=== PATIENT | female | born 1950 | race American Indian/Alaskan Native ===

== ENCOUNTER 2016-06-29 07:53 | Outpatient (CLI) | payer MEDICARE ==
--- NOTE | 2016-06-29 09:08 | Mammography Report ---
BILATERAL MAMMOGRAM with CAD: HISTORY: Cancer screening. Comparison study is dated May 10, 2015. FINDINGS: The breast tissue is heterogeneously dense, which could obscure detection of small masses (approximately 50%-75% glandular). No mass, distortion, suspicious calcification, or skin change is seen. IMPRESSION: Negative mammogram. There is no mammographic evidence of malignancy. RECOMMENDATION: Follow-up per ACS guidelines. BI-RADS CATEGORY: 1 = Negative ACR BI-RADS MAMMOGRAPHIC CODES: 0 = Needs additional imaging evaluation; 1 = Negative; 2 = Benign; 3 = Probably benign; 4 = Suspicious; 5 = Malignant; 6 = Known biopsy-proven malignancy COMMENT: 1. Dense breast tissue, i.e., adenosis, fibrocystic changes, etc., may obscure an underlying neoplasm. 2. Approximately 10% of cancers are not detected with mammography. 3. A negative mammography report should not delay biopsy if a clinically suspicious mass is present. COMMENT: Patient follow-up letters are generated in [employer].
== END 2016-06-29 07:54 | disposition home or self-care (01) ==
LOC: MAMMO 07:53
PROVIDERS: ATTEND Physician Assistant Medical
DX: Z12.31 Encounter for screening mammogram for malignant neoplasm of breast (principal)
CPT/HCPCS: 77067; G0202

== ENCOUNTER 2016-07-12 05:51 | Day surgery (SDC) | payer MEDICARE ==
--- NOTE | 2016-07-11 17:20 | History and Physical Report ---
History of Present Illness Date of examination: 07/11/16 Chief complaint: Vulvar lesion, needle phobia History of present illness: Pt is a 65 year old -[place] female who presents with vulvar and perineal skin thickening and hypopigmenation for the past six years. Pt refused in-office biopsy secondary to her fear of needles and injections. Past History Past Medical History: thyroid disease Past Surgical History: appendectomy, hemorrhoidectomy, thyroid [employer] History: chlamydia (remote, treated ) Family/Genetic History: diabetes, hypertension Social history: no significant social history Medications and Allergies Allergies Allergy/AdvReac Type Severity Reaction Status Date / Time No Known Allergies Allergy Verified 07/07/16 15:05 Home Medications Medication Instructions Recorded Confirmed Last Taken Type Levothyroxine [Synthroid] 88 mcg PO QAM 07/07/16 07/07/16 Unknown History Active Meds: Active Medications Famotidine (Pepcid) 20 mg PO PREOP NR Stop: 07/12/16 23:00 Sodium Chloride (Nacl 0.9% 1000 Ml) 1,000 mls @ 100 mls/hr IV DIRECT LILO Midazolam HCl (Versed) 2 mg IV PREOP NR Stop: 07/12/16 23:00 Review of Systems All systems: negative - Physical Exam Breasts: Positive: deferred Cardiovascular: Regular rate Lungs: Positive: Clear to auscultation Abdomen: Positive: soft Genitourinary (Female): Positive: perineal/vulvar lesions (per HPI) Extremities: Positive: normal Results All other labs normal. Assessment and Plan A: Vulvar lesion Needle Phobia Thyroid Dysfunction P: Proceed with vulvar biopsy and other indicated procedures.
[2016-07-12] MEDS ORDERED: NACL BACTERIOSTATIC INFILTRATI ONE (06:14)
--- NOTE | 2016-07-12 06:37 | Anesthesia Consultation ---
Anesthesia Consult and Med Hx Date of service: 07/12/16 - Airway Anesthetic Teeth Evaluation: Dentures ROM Head & Neck: Adequate Mental/Hyoid Distance: Adequate Mallampati Class: Class II Intubation Access Assessment: Probably Good - Pulmonary Exam CTA: Yes - Cardiac Exam Cardiac Exam: RRR - Pre-Operative Health Status ASA Pre-Surgery Classification: ASA2 Proposed Anesthetic Plan: General - Pulmonary Hx Smoking: Yes (former, quit 8 years ago) - Central Nervous System Hx Psychiatric Problems: No - Endocrine Hx Hypothyroidism: Yes - Other Systems Hx Alcohol Use: Yes (occas) Hx Cancer: No
--- NOTE | 2016-07-12 06:37 | Anesthesia Day of Surgery ---
Anesthesia Day of Surgery - Day of Surgery Patient Examined: Yes Patient H&P Reviewed: Yes Patient is NPO: Yes
[2016-07-12 06:54] LABS: Hematocrit 39.7 % (30.3-42.9); Hemoglobin 13.2 gm/dl (10.1-14.3); Mean Corpuscular HGB Conc 33 % (30-34); Mean Corpuscular Hemoglobin 31 pg (28-32); Mean Corpuscular Volume 93 fl (79-97); Platelet Count 287 K/mm3 (140-440); Red Blood Count 4.28 M/mm3 (3.65-5.03); Red Cell Distribution Width 13.2 % (13.2-15.2); White Blood Count 5.2 K/mm3 (4.5-11.0)
[2016-07-12] MEDS ORDERED: PEPCID PO NR (07:00)
[2016-07-12] MEDS ORDERED: VERSED IV NR (07:00)
[2016-07-12] MEDS ORDERED: NACL 0.9% 1000 ML 1,000 ML IV SCH (07:00)
[2016-07-12] MEDS ORDERED: ANCEF/STERILE WATER 2 GM/20 ML 2 GM/20 ML SYRINGE IV NR (07:00)
[2016-07-12] MEDS ORDERED: DIPRIVAN 10 MG/ML IV ONE (07:19)
[2016-07-12] MEDS ORDERED: XYLOCAINE MPF 2% ONE (07:19)
[2016-07-12] MEDS ORDERED: DILAUDID IV PRN (07:20)
[2016-07-12] MEDS ORDERED: TORADOL IV PRN (07:20)
[2016-07-12] MEDS ORDERED: ZOFRAN IV PRN (07:20)
[2016-07-12] MEDS ORDERED: DECADRON ONE (07:52)
[2016-07-12] MEDS ORDERED: NACL 0.9% IR ONE (08:00)
--- NOTE | 2016-07-12 08:18 | Operative Report ---
Operative Report Operative Report: Date of Procedure: July 12, 2016 Preoperative Diagnosis: Vulvar lesion, Needle Phobia Postoperative Diagnosis: Same Procedure: Vulvar Biopsies Anesthesia: General with LMA Surgeon: Harper Duggan MD Findings: Hypopigmented vulva effusion and atrophy of the labia minora. Were hyperpigmented lesion within the hypopigmented lesion at 4:00 position of the vulva. Perineal skin is thickened as well. Estimated blood loss: Minimal IV fluid: 750 mL Urine output: 50 mL prior to the procedure Specimen: 4 vulvar biopsies to pathology Drains: None Complications: Counts correct x 2 Disposition: Stable to PACU Indication for procedure: Pt is a 65 year old -[place] female who presents with vulvar and perineal skin thickening and hypopigmenation for the past six years. She refused in-office biopsy secondary to a needle phobia. Operation in detail: After the risks, benefits, alternatives and complications were explained to the patient, she gave informed consent for the procedure. She was taken to the operating room with her IV noted to be running well and placed in the dorsal supine position with SCDs noted to be in place and functioning well. Gen. anesthesia with LMA was induced without difficulty. The patient was in placement dorsal lithotomy position and prepped and draped in normal sterile fashion. A timeout was performed. At this time the bladder was catheterized with a red rubber catheter yielding 50 mL of juan manuel-colored urine. The vulva was then examined and 4 areas were identified for biopsy. A 4 mm Lamont punch biopsy instrument was used to obtain four vulvar biopsies as follows: midline vulva (12 o clock); right vulva (7 o clock); left vulva (4 o clock) and left vulva (2 o clock). Each specimen was sized with scissors and sent separately to pathology. The remaining vulvar defects were each cauterized with the Bovie and reapproximated with a figure of 8 of 4-0 Vicryl. Hemostasis was noted of all 4 sites. At this time the procedure was ended. The patient was replaced in the dorsal supine position and extubated without difficulty and she was subsequently taken to the PACU in stable condition. All counts were correct 2.
--- NOTE | 2016-07-12 08:33 | Short Stay Summary ---
Short Stay Documentation Date of service: 07/12/16 - History H&P: dictated Social history: no significant social history - Allergies and Medications Current Medications: Allergies No Known Allergies Allergy (Verified 07/07/16 15:05) Home Medications Medication Instructions Recorded Confirmed Last Taken Type Levothyroxine [Synthroid] 88 mcg PO QAM 07/07/16 07/12/16 07/12/16 04:00 History Active Medications Famotidine (Pepcid) 20 mg PO PREOP NR Stop: 07/12/16 23:00 Last Admin: 07/12/16 06:41 Dose: 20 mg Hydromorphone HCl (Dilaudid) 0.5 mg IV Q10MIN PRN PRN Reason: Pain , Severe (7-10) Stop: 07/12/16 16:00 Sodium Chloride (Nacl 0.9% 1000 Ml) 1,000 mls @ 100 mls/hr IV DIRECT LILO Last Admin: 07/12/16 06:35 Dose: 100 mls/hr Cefazolin Sodium (Ancef/Sterile Water 2 Gm/20 Ml) 2 gm in 20 mls @ 80 mls/hr IV PREOP NR PRN Reason: Protocol Stop: 07/12/16 23:59 Ketorolac Tromethamine (Toradol) 30 mg IV ONCE PRN PRN Reason: Pain, Moderate (4-6) Stop: 07/12/16 16:00 Midazolam HCl (Versed) 2 mg IV PREOP NR Stop: 07/12/16 23:00 Last Admin: 07/12/16 07:00 Dose: 2 mg Ondansetron HCl (Zofran) 4 mg IV ONCE PRN PRN Reason: Nausea And Vomiting Stop: 07/12/16 16:00 - Physical exam Breasts: deferred - Brief post op/procedure progress note Date of procedure: 07/12/16 Pre-op diagnosis: Vulvar lesion, Needle Phobia Post-op diagnosis: same Procedure: Vulvar Biopsies under anesthesia Anesthesia: GETA (with LMA) Findings: Hypopigmented vulva effusion and atrophy of the labia minora. Were hyperpigmented lesion within the hypopigmented lesion at 4:00 position of the vulva. Perineal skin is thickened as well. Surgeon: TOÑO BLAND Estimated blood loss: minimal Pathology: list (midline 12 oclock, right vulva 7 oclock, left vulva 2 oclock and 4 oclock) Specimen disposition: to lab Condition: stable - Hospital course Hospital course: Patient underwent a vulvar biopsies under anesthesia was she tolerated well. She was observed in the PACU until she met discharge criteria. She'll follow- up in the office in 2 weeks for postoperative visit. - Disposition Condition at discharge: Stable Disposition: DISCHARGED TO HOME OR SELFCARE - Discharge Diagnoses (1) Vulvar lesion Status: Acute (2) Needle phobia Status: Acute Short Stay Discharge Plan Activity: other (No baths, no intercourse x 4 wks ) Weight Bearing Status: Full Weight Bearing Diet: regular Wound: open to air, keep clean and dry, per your surgeon's advice Follow up with: SUZANNA ERICKSON MD [Primary Care Provider] - 7 Days TOÑO BLAND MD [Staff Physician] - 7 Days Prescriptions: Ibuprofen [Motrin] 600 mg PO Q6H PRN #30 tablet PRN Reason: Pain oxyCODONE /ACETAMINOPHEN [Percocet 5/325] 1 tab PO Q6HR PRN #30 tablet PRN Reason: Pain
[2016-07-12] MEDS ORDERED: PERCOCET 5/325 PO PRN (09:00)
[2016-07-12 09:34] VITALS: BP 110/70
--- NOTE | 2016-07-12 10:03 | Post Anesthesia Evaluation ---
- Post Anesthesia Evaluation Patient Participated: Yes Airway Patent: Yes Stable Respiratory Function: Yes Nausea/Vomiting: No Temp > 96.8F: Yes Pain Manageable: Yes Adequeate Hydration: Yes Anesthesia Complications: No Block Receding Appropriately: Not Applicable Patient on Ventilator: No
== END 2016-07-12 09:50 | disposition home or self-care (01) ==
LOC: OR 05:51
PROVIDERS: ATTEND Obstetrics & Gynecology
DX: N90.89 Other specified noninflammatory disorders of vulva and perineum (principal); N90.5 Atrophy of vulva; F40.231 Fear of injections and transfusions; E03.9 Hypothyroidism, unspecified; Z87.891 Personal history of nicotine dependence; Z72.89 Other problems related to lifestyle; Z98.890 Other specified postprocedural states; Z83.3 Family history of diabetes mellitus; Z82.49 Family history of ischemic heart disease and other diseases of the circulatory system
CPT/HCPCS: 36415; 56605; 56606; 85027; 86850; 86900; 86901; 88305; J0690; J1100; J1885; J2250; J2405; J2704; J7030

== ENCOUNTER 2017-03-14 05:54 | Day surgery (SDC) | payer MEDICARE ==
--- NOTE | 2017-03-13 08:55 | History and Physical Report ---
History of Present Illness Date of examination: 03/06/17 Chief complaint: vaginal lesion, needle phobia History of present illness: Pt is a 66 year old -[place] female with a h/o lichen sclerosus who presents with multiple hyperpigmented lesions in the vagina and a needle phobia. Pt requested biopsy under anesthesia. Past History Past Medical History: thyroid disease Past Surgical History: appendectomy, thyroid, other (hemorrhoidestomy) DBA History: other (lichen sclerosus of the vulva) Family/Genetic History: diabetes, hypertension Social history: no significant social history Medications and Allergies Allergies Allergy/AdvReac Type Severity Reaction Status Date / Time No Known Allergies Allergy Verified 07/07/16 15:05 Home Medications Medication Instructions Recorded Confirmed Last Taken Type Levothyroxine [Synthroid] 88 mcg PO QAM 07/07/16 07/12/16 07/12/16 04:00 History Ibuprofen [Motrin] 600 mg PO Q6H PRN #30 tablet 07/12/16 Unknown Rx oxyCODONE /ACETAMINOPHEN [Percocet 1 tab PO Q6HR PRN #30 tablet 07/12/16 Unknown Rx 5/325] Active Meds: Active Medications Famotidine (Pepcid) 20 mg PO PREOP NR Stop: 03/14/17 23:59 Sodium Chloride (Nacl 0.9% 1000 Ml) 1,000 mls @ 75 mls/hr IV DIRECT LILO Midazolam HCl (Versed) 2 mg IV PREOP NR Stop: 03/14/17 23:59 Review of Systems All systems: negative - Physical Exam Breasts: Positive: deferred Cardiovascular: Regular rate Lungs: Positive: Clear to auscultation Abdomen: Positive: soft Vagina: Positive: other (two subcentimeter hyperpigemnted lesions ) Extremities: Positive: normal Results All other labs normal. Assessment and Plan A: Vaginal lesions Lichen sclerosus Needle Phobia P: Proceed with exam under anesthesia, vaginal biopsy and other indicated procedures.
[2017-03-14] MEDS ORDERED: PEPCID PO NR (06:00)
[2017-03-14] MEDS ORDERED: VERSED IV NR (06:00)
[2017-03-14] MEDS ORDERED: NACL 0.9% 1000 ML 1,000 ML IV SCH (06:00)
[2017-03-14] MEDS ORDERED: ANCEF/STERILE WATER 2 GM/20 ML 2 GM/20 ML SYRINGE IV NR (06:00)
[2017-03-14] MEDS ORDERED: NACL BACTERIOSTATIC INFILTRATI ONE (06:37)
[2017-03-14 07:04] LABS: Hematocrit 40.2 % (30.3-42.9); Hemoglobin 13.9 gm/dl (10.1-14.3); Mean Corpuscular HGB Conc 35 % (30-34); Mean Corpuscular Hemoglobin 32 pg (28-32); Mean Corpuscular Volume 92 fl (79-97); Platelet Count 285 K/mm3 (140-440); Red Blood Count 4.39 M/mm3 (3.65-5.03); Red Cell Distribution Width 12.9 % (13.2-15.2); White Blood Count 6.3 K/mm3 (4.5-11.0)
[2017-03-14] MEDS ORDERED: XYLOCAINE MPF 2% ONE (07:25)
[2017-03-14] MEDS ORDERED: DIPRIVAN 10 MG/ML IV ONE (07:25)
[2017-03-14] MEDS ORDERED: SUBLIMAZE ONE (07:25)
[2017-03-14] MEDS ORDERED: NACL 0.9% 100 ML ONE (07:56)
[2017-03-14] MEDS ORDERED: SILVER NITRATE TP ONE ×2 (07:56→08:14)
--- NOTE | 2017-03-14 07:56 | Anesthesia Consultation ---
Anesthesia Consult and Med Hx Date of service: 03/14/17 - Airway Anesthetic Teeth Evaluation: Good ROM Head & Neck: Adequate Mental/Hyoid Distance: Adequate Intubation Access Assessment: Probably Good - Pulmonary Exam CTA: Yes - Cardiac Exam Cardiac Exam: RRR - Pre-Operative Health Status ASA Pre-Surgery Classification: ASA2 Proposed Anesthetic Plan: General - Pulmonary Hx Smoking: Yes (former, quit 8 years ago) - Central Nervous System Hx Psychiatric Problems: No - Endocrine Hx Hypothyroidism: Yes - Other Systems Hx Alcohol Use: Yes (occas) Hx Cancer: No
--- NOTE | 2017-03-14 07:56 | Anesthesia Day of Surgery ---
Anesthesia Day of Surgery - Day of Surgery Patient Examined: Yes Patient H&P Reviewed: Yes Patient is NPO: Yes
[2017-03-14] MEDS ORDERED: DECADRON ONE (07:57)
[2017-03-14] MEDS ORDERED: Vasostrict ONE (07:57)
[2017-03-14] MEDS ORDERED: ZOFRAN ONE (07:57)
[2017-03-14] MEDS ORDERED: Vasostrict IM ONE (08:14)
[2017-03-14] MEDS ORDERED: NACL 0.9% IR ONE (08:17)
[2017-03-14] MEDS: DILAUDID IV PRN ×2 (08:40→08:50)
--- NOTE | 2017-03-14 08:40 | Operative Report ---
Operative Report Operative Report: Date of Procedure: March 14, 2017 Preoperative Diagnosis: 1) Vaginal Lesion 2) Lichen Sclerosus 3) Needle Phobia Postoperative Diagnosis: Same Procedure: Vaginal and labial biopsies Surgeon: Harper Duggan MD Anesthesia: General Findings: Generally hypopigmented vulva secondary to biopsy-proven lichen sclerosus with containing multiple areas of hyperpigmentation EBL: 5 mL IVF: 600 mL Urine output: 100 mL, prior to the procedure Specimens: vaginal biopsies from 5, 6 , and 7 oclock and labial biopsy from 2 oclock to pathology Drains: None Complication: None. Counts correct x 2 Disposition: Stable to PACU Indication for Procedure: This patient is a 66 year old -[place] female with a h/o lichen sclerosus containing multiple hyperpigmented lesions and needle phobia who presents for biopsy under anesthesia. Operation in Detail: After the risks, benefits, alternatives and complication were explained to the patient, she gave informed consent for the procedure. She was subsequently taken to the operating room with her IV noted to be running well and placed in the dorsal supine position. General anesthesia was then inducted without difficulty. She was then placed in the dorsal supine position and prepped and draped in a normal sterile fashion. Time out was performed. The patient's bladder was drained with a red rubber catheter yielding 100 mL of clear urine. The vagina and vulva were then surveyed. A dilute pitressin solution (20 units of pitressin in 100 mL of saline) was injected at the areas of intended biopsy. Vaginal biopsies at 5, 6 and 7 oclock were taken with a 4 mm Lee Ann punch biopsy tool and sent to pathology. A 3 mm Lee Ann punch biopsy tool was used to take a labial biopsy from 2 o clock which was also sent to pathology. The remaining defects were each reapproximated with a figure of eight of 4-0 Vicryl suture. Hemostasis was noted. The procedure was ended. The patient was replaced in dorsal supine position and extubated without difficulty. She was subsequently taken to the PACU in stable condition. All counts were correct x 2.
--- NOTE | 2017-03-14 08:52 | Short Stay Summary ---
Short Stay Documentation Date of service: 03/14/17 - History H&P: dictated Social history: no significant social history - Allergies and Medications Current Medications: Allergies No Known Allergies Allergy (Verified 03/13/17 10:22) Home Medications Medication Instructions Recorded Confirmed Last Taken Type Levothyroxine [Synthroid] 88 mcg PO QAM 07/07/16 03/14/17 03/14/17 05:00 History Active Medications Famotidine (Pepcid) 20 mg PO PREOP NR Stop: 03/14/17 23:59 Last Admin: 03/14/17 06:30 Dose: 20 mg Hydromorphone HCl (Dilaudid) 0.5 mg IV Q10MIN PRN PRN Reason: Severe Pain Stop: 03/14/17 13:00 Sodium Chloride (Nacl 0.9% 1000 Ml) 1,000 mls @ 75 mls/hr IV DIRECT LILO Last Admin: 03/14/17 06:40 Dose: 75 mls/hr Cefazolin Sodium (Ancef/Sterile Water 2 Gm/20 Ml) 2 gm in 20 mls @ 80 mls/hr IV PREOP NR PRN Reason: Protocol Stop: 03/14/17 12:00 Midazolam HCl (Versed) 2 mg IV PREOP NR Stop: 03/14/17 23:59 Last Admin: 03/14/17 07:23 Dose: 2 mg Ondansetron HCl (Zofran) 4 mg IV ONCE PRN PRN Reason: Nausea And Vomiting Stop: 03/14/17 09:01 Oxycodone/Acetaminophen (Percocet 5/325) 1 tab PO ONCE PRN PRN Reason: Pain, Moderate (4-6) Stop: 03/14/17 09:01 - Physical exam Breasts: deferred - Brief post op/procedure progress note Date of procedure: 03/14/17 Pre-op diagnosis: Lichen sclerosus, Vaginal lesion, Needle Phobia Post-op diagnosis: same Procedure: Vaginal and labial biopsies Anesthesia: GETA Findings: Generally hypopigmented vulva secondary to biopsy-proven lichen sclerosus with containing multiple areas of hyperpigmentation Surgeon: TOÑO BLAND Estimated blood loss: minimal (5 mL) Pathology: list (biopsy from 2, 5, 6, and 7 oclock) Specimen disposition: to lab Condition: stable - Hospital course Hospital course: Pt tolerated vaginal and labial biopsies under anesthesia well. She was observed in the PACU until she met discharge criteria. - Disposition Condition at discharge: Stable Disposition: DC-01 TO HOME OR SELFCARE - Discharge Diagnoses (1) Vaginal lesion Status: Acute (2) Lichen sclerosus Status: Acute (3) Needle phobia Status: Acute Short Stay Discharge Plan Activity: other (Nothing in vagina or baths x 4 weeks ) Weight Bearing Status: Full Weight Bearing Diet: regular Wound: keep clean and dry Follow up with: SUZANNA ERICKSON MD [Primary Care Provider] - 7 Days TOÑO BLAND MD [Staff Physician] - 04/02/17 (postoperative exam ) Prescriptions: Ibuprofen [Motrin] 600 mg PO Q6H PRN #30 tablet PRN Reason: Pain oxyCODONE /ACETAMINOPHEN [Percocet 5/325] 1 tab PO Q6HR PRN #30 tablet PRN Reason: Pain
[2017-03-14] MEDS ORDERED: ZOFRAN IV PRN (09:00)
[2017-03-14] MEDS ORDERED: PERCOCET 5/325 PO PRN (09:00)
[2017-03-14] MEDS ORDERED: PERCOCET 5/325 ONE (09:27)
--- NOTE | 2017-03-14 09:29 | Post Anesthesia Evaluation ---
- Post Anesthesia Evaluation Patient Participated: Yes Airway Patent: Yes Stable Respiratory Function: Yes Temp > 96.8F: Yes Pain Manageable: Yes Adequeate Hydration: Yes Anesthesia Complications: No
[2017-03-14 11:36] VITALS: BP 127/80
== END 2017-03-14 10:35 | disposition home or self-care (01) ==
LOC: OR 05:54
PROVIDERS: ATTEND Obstetrics & Gynecology
DX: N89.8 Other specified noninflammatory disorders of vagina (principal); N90.89 Other specified noninflammatory disorders of vulva and perineum; L90.0 Lichen sclerosus et atrophicus; F40.8 Other phobic anxiety disorders; I10 Essential (primary) hypertension; E11.9 Type 2 diabetes mellitus without complications; Z90.89 Acquired absence of other organs; Z98.890 Other specified postprocedural states; Z79.899 Other long term (current) drug therapy; Z87.891 Personal history of nicotine dependence; E03.9 Hypothyroidism, unspecified; Z72.89 Other problems related to lifestyle
CPT/HCPCS: 36415; 56605; 57100; 85027; 86850; 86900; 86901; 88305; J0690; J1100; J1170; J2250; J2405; J2704; J3010; J7030

== ENCOUNTER 2017-06-25 14:37 | Emergency (ER) | payer MEDICARE ==
[2017-06-25 17:14] VITALS: BP 120/80
== END 2017-06-25 20:38 | disposition left against medical advice (07) ==
LOC: ED 14:37
DX: R50.9 Fever, unspecified (principal); R05 Cough; R51 Headache; Z53.21 Procedure and treatment not carried out due to patient leaving prior to being seen by health care provider

== ENCOUNTER 2018-01-17 08:56 | Outpatient (CLI) | payer MEDICARE ==
--- NOTE | 2018-01-18 08:34 | Mammography Report ---
BILATERAL MAMMOGRAM: FINDINGS: The breast tissue is heterogeneously dense, which could obscure detection of small masses (approximately 50%-75% glandular). No mass, distortion, suspicious calcification, or skin change is seen. No significant change when compared to prior exam in June 2016. CAD was utilized. IMPRESSION: Negative mammogram. There is no mammographic evidence of malignancy. RECOMMENDATION: Follow-up per ACS guidelines. BI-RADS CATEGORY: 1 = Negative ACR BI-RADS MAMMOGRAPHIC CODES: 0 = Needs additional imaging evaluation; 1 = Negative; 2 = Benign; 3 = Probably benign; 4 = Suspicious; 5 = Malignant; 6 = Known biopsy-proven malignancy COMMENT: 1. Dense breast tissue, i.e., adenosis, fibrocystic changes, etc., may obscure an underlying neoplasm. 2. Approximately 10% of cancers are not detected with mammography. 3. A negative mammography report should not delay biopsy if a clinically suspicious mass is present. COMMENT: Patient follow-up letters are generated in [employer].
== END 2018-01-17 08:57 | disposition home or self-care (01) ==
LOC: MAMMO 08:56
PROVIDERS: ATTEND Internal Medicine
DX: Z12.31 Encounter for screening mammogram for malignant neoplasm of breast (principal); E03.9 Hypothyroidism, unspecified; Z90.89 Acquired absence of other organs
CPT/HCPCS: 77067

== ENCOUNTER 2019-01-21 08:18 | Outpatient (CLI) | payer MEDICARE ==
--- NOTE | 2019-01-21 16:08 | Mammography Report ---
BILATERAL DIGITAL SCREENING MAMMOGRAM WITH CAD INDICATION: Routine screening mammography. TECHNIQUE: Digital bilateral 2D mammography was obtained in the craniocaudal and mediolateral obliq ue projections. This examination was interpreted with the benefit of Computer-Aided Detection analysi s. COMPARISON: 01/17/2018 FINDINGS: Breast Density: The breasts are heterogeneously dense, which may obscure small masses. No mass, architectural distortion or suspicious calcifications. IMPRESSION:No mammographic evidence of malignancy. BI-RADS Category 1: Negative. No mammographic evidence of malignancy. Recommend routine screening m ammography in one year. A "normal" or negative report should not discourage follow up or biopsy of a clinically significant f inding. A written summary of these findings will be mailed to the patient. The patient will be entered into a mammography reporting system which will generate a reminder letter for the patient's next appointmen t at the appropriate interval. The [employer] recommends yearly mammograms starting at age 40 and continuing as l perry as a woman is in good health. Breast MRI is recommended for women with an approximate 20-25% or greater lifetime risk of breast cancer, including women with a strong family history of breast or ova abdiel cancer or who have been treated for Hodgkin's disease. Signer Name: Ethan Hughes MD Signed: 01/21/2019 4:03 PM Workstation Name: [id number]
== END 2019-01-21 08:19 | disposition home or self-care (01) ==
LOC: MAMMO 08:18
PROVIDERS: ATTEND Internal Medicine
DX: Z12.31 Encounter for screening mammogram for malignant neoplasm of breast (principal); E89.0 Postprocedural hypothyroidism; Z87.891 Personal history of nicotine dependence
CPT/HCPCS: 77067